=== PATIENT | male | born 1940 | race Caucasian/White ===

== ENCOUNTER 2020-09-30 04:09 | Emergency (ER) | payer MEDICARE, OTHER, SELFPAY ==
[2020-09-30 04:13] VITALS: BP 191/87; PULSE 86; RESP 18; TEMP 36.6; O2SAT 98
--- NOTE | 2020-09-30 04:26 | ED.GENADULT ---
HPI - General Adult General Chief complaint: Epistaxis Stated complaint: nose bleed since 1630 Time Seen by Provider: 09/30/20 04:13 History of Present Illness HPI narrative: Patient is a 80-year-old gentleman who presents the emergency department with chief complaint of epistaxis. Patient reports that he started having bleeding out of his right nostril. The patient states that he is not on any anticoagulants he is on a daily aspirin. The patient also reports that he uses a CPAP but does use humidified air. Patient reports that the bleeding started and he started having some clots out of the right nostril he attempted to apply pressure and also packed his nose with Kleenex. Patient thought that he remove most of the Kleenex from his nose patient stood in line at [facility]'s emergency department and after waiting several hours he was still 6 to the line and the patient decided to come to our facility. The patient reports that he has had prior episode of epistaxis many years ago that required cauterization in his left nostril.. Related Data Home Medications Medication Instructions Recorded Confirmed atorvastatin 09/30/20 atorvastatin 09/30/20 blood sugar diagnostic [FreeStyle 09/30/20 09/30/20 Lite Strips] glimepiride mg 09/30/20 hydrochlorothiazide 09/30/20 metformin mg 09/30/20 09/30/20 niacin mg PO 09/30/20 sitagliptin [Januvia] mg 09/30/20 Allergies Allergy/AdvReac Type Severity Reaction Status Date / Time No Known Allergies Allergy Verified 09/30/20 04:17 Review of Systems Review of Systems: Narrative: A 10 system review of systems was completed on the patient and is negative except for what is stated in the HPI. Nursing and ancillary documentation was reviewed. PMFSH Comments Past medical history significant for diabetes hypertension hyper lipidemia Social history the patient lives with his Exam Narrative: Exam Narrative: GENERAL: Well-appearing, well-nourished, and in no acute distress. HEAD: Normocephalic, atraumatic. EYES: PERRLA and EOMI. ENT: Nares clear, no rhinorrhea there is a slight amount of blood in the nasal canal. The patient self perform packing was removed and a clot was expressed out of the nostril upon removal of the packing. Mucous membranes moist. NECK: Supple. CHEST: Clear to auscultation. No respiratory distress. HEART: Regular rate and rhythm. No murmur heard. Normal peripheral pulses. ABDOMEN: Soft, nontender, nondistended, normal active bowel sounds. EXTREMITIES: Normal range of motion. No edema. SKIN: Warm, dry, no rash. NEURO: No focal deficits. Alert and oriented x3. PSYCH: Normal mood and affect. Course Course Emergency Course: Currently the patient is having minimal bleeding patient at this time will be attempted to be treated conservatively with Jeremie-Synephrine nasal spray and pressure. Vital Signs Vital signs: Vital Signs Temperature 36.6 C 09/30/20 04:13 Pulse Rate 86 09/30/20 04:13 Respiratory Rate 18 09/30/20 04:13 Blood Pressure 191/87 H 09/30/20 04:13 Pulse Oximetry 98 09/30/20 04:13 Temperature 36.6 C 09/30/20 04:13 Pulse Rate 64 09/30/20 04:34 Respiratory Rate 20 09/30/20 04:34 Blood Pressure 161/77 H 09/30/20 04:34 Pulse Oximetry 97 09/30/20 04:34 Medical Decision Making Vital Signs Vital Signs: Vital Signs Temperature 36.6 C 09/30/20 04:13 Pulse Rate 86 09/30/20 04:13 Respiratory Rate 18 09/30/20 04:13 Blood Pressure 191/87 H 09/30/20 04:13 Pulse Oximetry 98 09/30/20 04:13 Temperature 36.6 C 09/30/20 04:13 Pulse Rate 64 09/30/20 04:34 Respiratory Rate 20 09/30/20 04:34 Blood Pressure 161/77 H 09/30/20 04:34 Pulse Oximetry 97 09/30/20 04:34 Discharge Plan Discharge Clinical Impression: Epistaxis Patient Disposition: Home, Self-Care Condition: Stable Instructions: Antibiotic Form, Nosebleed (ED) Prescriptions: No Action atorvasta
[2020-09-30] MEDS: PHENYLEPHRINE 1% NA SPR (*BKC) 15 ML BTL 2 SPRAY EACH NARE (04:30)
[2020-09-30 04:34] VITALS: BP 161/77; PULSE 64; RESP 20; O2SAT 97
== END 2020-09-30 05:15 | disposition home or self-care (01) ==
PROVIDERS: Emergency Provider Emergency Medicine; PCP Family Medicine
DX: R04.0 Epistaxis (principal); Z79.82 Long term (current) use of aspirin
CPT/HCPCS: 99283; A9270